=== PATIENT | female | born 1995 | race Two or more races ===

== ENCOUNTER 2016-05-06 18:24 | Emergency (ER) | payer MEDICAID ==
[2016-05-06 18:37] VITALS: BP 122/68
--- NOTE | 2016-05-06 20:08 | EDM.PDOC ---
ED HPI Trauma - General Chief Complaint: Lower Extremity Injury/Pain Stated Complaint: RT FOOT Time Seen by Provider: 05/06/16 20:04 Source: Reports: Patient History Limitations: Reports: No limitations - History of Present Illness INITIAL COMMENTS - FREE TEXT/NARRATIVE: bumped right foot onto night stand [employer], c/o swelling and discolouration. Allergies/ADRs: Allergies No Known Allergies Allergy (Verified 05/06/16 18:44) Home Medications: Ambulatory Orders Acetaminophen [Tylenol] 650 mg PO Q6H PRN #0 tablet 03/07/16 [Confirmed 05/06/16 ] Docusate Sodium [Colace] 100 mg PO Q12H PRN #0 cap 03/07/16 [Confirmed 05/06/16] Ibuprofen [IJD: Ibuprofen] 800 mg PO Q8H PRN #0 tablet 03/07/16 [Confirmed 05/06] Past Medical History - Past Health History Medical/Surgical History: Denies Medical/Surgical History HEENT History: Reports: None Cardiovascular History: Reports: None Respiratory History: Reports: None Gastrointestinal History: Reports: None Genitourinary History: Reports: UTI, recurrent 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: Neurological History: Reports: Migraines Psychiatric History: Reports: Anxiety, Depression Hematologic History: Reports: Anemia, Iron deficiency - Infectious Disease History Infectious Disease History: Reports: Chicken pox Social & Family History - Family History Family Medical History: Noncontributory - Tobacco Use Smoking Status *Q: Former Smoker Years of Tobacco use: 5 Packs/Tins Daily: 0.5 Used Tobacco, but Quit: Yes Month Tobacco Last Used: 08/2015 Second Hand Smoke Exposure: No - Caffeine Use Caffeine Use: Reports: Soda - Alcohol Use Days Per Week of Alcohol Use: 0 - Recreational Drug Use Recreational Drug Use: No Drug Use in Last 12 Months: Yes Recreational Drug Type: Reports: Marijuana/Hashish Recreational Drug Use Frequency: Daily Recreational Drug Last Use: 02/2016 - Living Situation & Occupation Living situation: Reports: single, with significant other Occupation: unemployed Review of Systems - Review of Systems Review Of Systems: ROS reveals no pertinent complaints other than HPI. Trauma Exam - Physical Exam Exam: See Below Exam Limited By: No limitations General Appearance: Reports: alert, WD/WN, no apparent distress Head: Reports: atraumatic Ears: Reports: hearing grossly normal Throat/Mouth: Reports: Normal voice, No airway compromise Neck: Reports: non-tender, full range of motion Respiratory Exam: Reports: no respiratory distress Cardiovascular: Reports: regular rate, rhythm GI/Abdominal: Reports: soft, non tender Extremities: Reports: tenderness, other (mild discolouration right ankle, NV wnl , gait limited to pain) Neurologic: Reports: no motor/sensory deficits, alert, oriented x 3 Skin: Reports: Normal color, Warm/dry Course - Vital Signs Last Recorded V/S: Last Vital Signs Temp 36.6 C 05/06/16 18:36 Pulse 70 05/06/16 18:36 Resp 18 05/06/16 18:36 BP 122/68 05/06/16 18:36 Pulse Ox 98 05/06/16 18:36 - Re-Assessments/Exams Free Text/Narrative Re-Assessment/Exam: 05/06/16 20:06 results discussed with Pt. Departure - Departure Time of Disposition: 20:06 Disposition: Home, Self-Care 01 Condition: good Clinical Impression: Contusion of ankle, right Qualifiers: Encounter type: initial encounter Qualified Code(s): S90.01XA - Contusion of right ankle, initial encounter Instructions: Foot Contusion, [id number] Forms: ED Department Discharge Additional Instructions: 1) elevate foot as much as possible next 48 hours 2) ice intermittently for swelling 3) try tylenol for pain 4) follow up at clinic or recheck as needed
== END 2016-05-06 20:14 | disposition home or self-care (01) ==
LOC: DL.ED 18:24
DX: S90.01XA Contusion of right ankle, initial encounter (principal); F41.9 Anxiety disorder, unspecified; F32.9 Major depressive disorder, single episode, unspecified; D50.9 Iron deficiency anemia, unspecified; Z87.891 Personal history of nicotine dependence; Y04.8XXA Assault by other bodily force, initial encounter
CPT/HCPCS: 73610-RT; 73630-RT; 99283

== ENCOUNTER 2016-05-18 13:08 | Emergency (ER) | payer MEDICAID ==
[2016-05-18 13:44] VITALS: BP 153/106
[2016-05-18] MEDS ORDERED: Sodium Chloride 0.9% 10 ML Syringe FLUSH PRN (13:46)
[2016-05-18] MEDS ORDERED: Sodium Chloride 0.9% 1,000 ML IV ONE (13:59)
[2016-05-18] MEDS ORDERED: Ondansetron 4 MG/2 ML SDV IV ONE (13:59)
[2016-05-18] MEDS ORDERED: Ketorolac 30 MG/ML SDV IVPUSH ONE (13:59)
--- NOTE | 2016-05-18 14:21 | EDM.PDOC ---
ED HISTORY OF PRESENT ILLNESS - General Chief Complaint: Respiratory Problem Stated Complaint: CHEST PAIN TO BACK, SICK Time Seen by Provider: 05/18/16 13:30 Source of Information: Reports: Patient, Old records, RN, RN notes reviewed History Limitations: Reports: No limitations - History of Present Illness INITIAL COMMENTS - FREE TEXT/NARRATIVE: Complaining of cough x1 month with 4-5 days of increasing SOB and wheezing. Denies fevers or chills. Admits to upper abdominal pain, but thinks it may be due to coughing. Severity: moderate Location, General: Reports: chest, abdomen Quality: Reports: Ache Improves with: Reports: None Worsens with: Reports: None Associated Symptoms (General): Reports: no other symptoms - Related Data Allergies/ADRs: Allergies Allergy/AdvReac Type Severity Reaction Status Date / Time No Known Allergies Allergy Verified 05/06/16 18:44 Home Meds: Home Meds Acetaminophen [Tylenol] 650 mg PO Q6H PRN #0 tablet 03/07/16 [Rx] Past Medical History - Past Health History Medical/Surgical History: Denies Medical/Surgical History HEENT History: Reports: None Cardiovascular History: Reports: None Respiratory History: Reports: None Gastrointestinal History: Reports: None Genitourinary History: Reports: UTI, recurrent 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: , Other (see below) Other OB/BYN History: Musculoskeletal History: Reports: None Neurological History: Reports: Migraines Psychiatric History: Reports: Anxiety, Depression Endocrine/Metabolic History: Reports: None Hematologic History: Reports: Anemia, Iron deficiency Dermatologic History: Reports: None - Infectious Disease History Infectious Disease History: Reports: Chicken pox - Past Surgical History GI Surgical History: Reports: None Social & Family History - Family History Family Medical History: Noncontributory - Tobacco Use Smoking Status *Q: Former Smoker Years of Tobacco use: 5 Packs/Tins Daily: 0.5 Used Tobacco, but Quit: Yes Month Tobacco Last Used: 08/2015 Second Hand Smoke Exposure: No - Caffeine Use Caffeine Use: Reports: Soda - Alcohol Use Days Per Week of Alcohol Use: 0 - Recreational Drug Use Recreational Drug Use: No Drug Use in Last 12 Months: Yes Recreational Drug Type: Reports: Marijuana/Hashish Recreational Drug Use Frequency: Daily Recreational Drug Last Use: 02/2016 - Living Situation & Occupation Living situation: Reports: single, with significant other Occupation: unemployed ED ROS GENERAL - Review of Systems Review Of Systems: ROS reveals no pertinent complaints other than HPI. ED EXAM, GENERAL - Physical Exam Exam: See Below Exam Limited By: No limitations General Appearance: alert, WD/WN, no apparent distress Eye Exam: bilateral eye: normal inspection Ears: normal external exam, normal canal, hearing grossly normal, normal TMs Nose: other (normal except for mild nasal congestion with clear mucus. ) Head: atraumatic, normocephalic Neck: normal inspection, supple, non-tender, full range of motion Respiratory/Chest: decreased breath sounds (in bilateral bases. ), wheezing ( mild scattered, otherwise normal.) Cardiovascular: normal peripheral pulses, regular rate, rhythm, no edema, no gallop, no JVD, no murmur, no rub GI/Abdominal: normal bowel sounds, soft, non tender, no organomegaly, no distention, no abnormal bruit, no mass Back Exam: normal inspection, full range of motion, NT Extremities: normal inspection, normal range of motion, non-tender, normal capillary refill, no pedal edema Neurological: alert, oriented, CN II-XII intact, normal cognition, normal gait, normal reflexes, no motor/sensory deficits Psychiatric: normal affect, normal mood Skin Exam: Warm, Dry, Intact, Normal color, No rash EKG INTERPRETATION EKG Date: 05/18/16 Time: 14:01 Rhythm: other (sinus bradycardia) Rate (beats/min): 54 [place]: normal P-wave: present QRS: normal ST-T: normal QT: normal Course - Vital Signs Last Recorded V/S: Last Vital Signs Temp 36.6 C 05/18/16 13:15 Pulse 61 05/18/16 15:02 Resp 18 05/18/16 13:15 BP 153/106 H 05/18/16 13:15 Pulse Ox 98 05/18/16 13:15 - Orders/Labs/Meds Orders: Active Orders 24 hr Category Date Time Status EKG 12 Lead [EKG Documentation Completion] [RC] STAT Care 05/18/16 13:46 Active Peripheral IV Care [RC] . DIRECTED Care 05/18/16 13:46 Active RT Aerosol Therapy [RC] ASDIRECTED Care 05/18/16 14:53 Active CULTURE STREP A CONFIRMATION [] Stat Lab 05/18/16 14:28 Results STREP SCRN A RAPID W CULT CONF [RM] Stat Lab 05/18/16 14:28 Results Sodium Chloride 0.9% [Saline Flush] Med 05/18/16 13:46 Active 10 ml FLUSH ASDIRECTED PRN Peripheral IV Insertion Adult [OM.PC] Stat Oth 05/18/16 13:46 Ordered Medication Orders Sodium Chloride (Saline Flush) 10 ml FLUSH ASDIRECTED PRN PRN Reason: Keep Vein Open Last Admin: 05/18/16 14:18 Dose: 10 ml Labs: Laboratory Tests 05/18/16 05/18/16 05/18/16 Range/Units 13:20 13:20 13:20 WBC (5.0-10.0) 10^3/uL RBC (4.2-5.4) 10^6/uL Hgb (12.0-16.0) g/dL Hct (37.0-47.0) % MCV (80-100) fL MCH (27.0-34.0) pg MCHC (33.0-35.0) g/dL Plt Count (150-450) 10^3/uL Neut % (Auto) (42.2-75.2) % Lymph % (Auto) (20.5-50.1) % [place] % (Auto) (2-8) % Eos % (Auto) (1.0-3.0) % Baso % (Auto) (0.0-1.0) % D-Dimer, Quantitative (0-400) ng/mL Sodium (135-145) mmol/L Potassium (3.6-5.0) mmol/L Chloride (101-111) mmol/L Carbon Dioxide (21.0-31.0) mmol/L Anion Gap BUN (7-18) mg/dL Creatinine (0.6-1.3) mg/dL Est Cr Clr Drug Dosing mL/min Estimated GFR (MDRD) BUN/Creatinine Ratio Glucose (74-105) mg/dL Calcium (8.4-10.2) mg/dl Total Bilirubin (0.2-1.0) mg/dL AST (10-42) IU/L ALT (10-60) IU/L Alkaline Phosphatase (42-121) IU/L Total Protein (6.7-8.2) g/dl Albumin (3.2-5.5) g/dl Globulin Albumin/Globulin Ratio Amylase (28-100) U/L Lipase (22-51) U/L Urine Color Light yellow (YELLOW) Urine Appearance Clear (CLEAR) Urine pH 7.0 (5.0-9.0) Ur Specific [place] 1.020 (1.005-1.030) Urine Protein Negative (NEGATIVE) Urine Glucose (UA) Negative (NEGATIVE) Urine Ketones Negative (NEGATIVE) Urine Occult Blood Negative (NEGATIVE) Urine Nitrite Negative (NEGATIVE) Urine Bilirubin Negative (NEGATIVE) Urine Urobilinogen 0.2 (0.2-1.0) mg/dL Ur Leukocyte Esterase Negative (NEGATIVE) Urine RBC Not seen /HPF Urine WBC 0-5 (0-5/HPF) /HPF Ur Epithelial Cells Few /HPF Urine Bacteria Rare (0-FEW/HPF) /HPF Urine HCG, Qual Negative Urine Opiates Screen Negative (NEGATIVE) Ur Oxycodone Screen Negative (NEGATIVE) Urine Methadone Screen Negative (NEGATIVE) Ur Barbiturates Screen Negative (NEGATIVE) U Tricyclic Antidepress Negative (NEGATIVE) Ur Phencyclidine Scrn Negative (NEGATIVE) Ur Amphetamine Screen Negative (NEGATIVE) U Methamphetamines Scrn Negative (NEGATIVE) Urine MDMA Screen Negative (NEGATIVE) U Benzodiazepines Scrn Negative (NEGATIVE) Urine Cocaine Screen Negative (NEGATIVE) U Marijuana (THC) Screen Positive H (NEGATIVE) 05/18/16 05/18/16 05/18/16 Range/Units 13:53 13:53 13:53 WBC 6.0 (5.0-10.0) 10^3/uL RBC 4.52 (4.2-5.4) 10^6/uL Hgb 11.3 L (12.0-16.0) g/dL Hct 35.9 L (37.0-47.0) % MCV 79.4 L (80-100) fL MCH 25.0 L (27.0-34.0) pg MCHC 31.5 L (33.0-35.0) g/dL Plt Count 160 (150-450) 10^3/uL Neut % (Auto) 65.0 (42.2-75.2) % Lymph % (Auto) 25.8 (20.5-50.1) % [place] % (Auto) 5.9 (2-8) % Eos % (Auto) 2.8 (1.0-3.0) % Baso % (Auto) 0.5 (0.0-1.0) % D-Dimer, Quantitative 328 (0-400) ng/mL Sodium 139 (135-145) mmol/L Potassium 3.5 L (3.6-5.0) mmol/L Chloride 107 (101-111) mmol/L Carbon Dioxide 27.0 (21.0-31.0) mmol/L Anion Gap 8.5 BUN 4 L (7-18) mg/dL Creatinine 0.6 (0.6-1.3) mg/dL Est Cr Clr Drug Dosing 107.43 mL/min Estimated GFR (MDRD) > 60 BUN/Creatinine Ratio 6.66 Glucose 90 (74-105) mg/dL Calcium 9.0 (8.4-10.2) mg/dl Total Bilirubin 0.4 (0.2-1.0) mg/dL AST 21 (10-42) IU/L ALT 27 (10-60) IU/L Alkaline Phosphatase 106 (42-121) IU/L Total Protein 7.5 (6.7-8.2) g/dl Albumin 4.5 (3.2-5.5) g/dl Globulin 3.0 Albumin/Globulin Ratio 1.50 Amylase 36 (28-100) U/L Lipase 27 (22-51) U/L Urine Color (YELLOW) Urine Appearance (CLEAR) Urine pH (5.0-9.0) Ur Specific [place] (1.005-1.030) Urine Protein (NEGATIVE) Urine Glucose (UA) (NEGATIVE) Urine Ketones (NEGATIVE) Urine Occult Blood (NEGATIVE) Urine Nitrite (NEGATIVE) Urine Bilirubin (NEGATIVE) Urine Urobilinogen (0.2-1.0) mg/dL Ur Leukocyte Esterase (NEGATIVE) Urine RBC /HPF Urine WBC (0-5/HPF) /HPF Ur Epithelial Cells /HPF Urine Bacteria (0-FEW/HPF) /HPF Urine HCG, Qual Urine Opiates Screen (NEGATIVE) Ur Oxycodone Screen (NEGATIVE) Urine Methadone Screen (NEGATIVE) Ur Barbiturates Screen (NEGATIVE) U Tricyclic Antidepress (NEGATIVE) Ur Phencyclidine Scrn (NEGATIVE) Ur Amphetamine Screen (NEGATIVE) U Methamphetamines Scrn (NEGATIVE) Urine MDMA Screen (NEGATIVE) U Benzodiazepines Scrn (NEGATIVE) Urine Cocaine Screen (NEGATIVE) U Marijuana (THC) Screen (NEGATIVE) Meds: Medications Generic Name Dose Route Start Last Admin Trade Name Luis PRN Reason Stop Dose Admin Sodium Chloride 10 ml 05/18/16 13:46 05/18/16 14:18 Saline Flush FLUSH 10 ml ASDIRECTED PRN Administration Keep Vein Open Discontinued Medications Generic Name Dose Route Start Last Admin Trade Name Luis PRN Reason Stop Dose Admin Albuterol/Ipratropium 3 ml 05/18/16 14:53 05/18/16 15:02 Duoneb 3.0-0.5 Mg/3 Ml NEB 05/18/16 14:54 3 ml ONETIME ONE Administration Sodium Chloride 1,000 mls @ 999 mls/hr 05/18/16 13:59 05/18/16 14:17 Normal Saline IV 05/18/16 14:59 999 mls/hr .BOLUS ONE Administration Ketorolac Tromethamine 30 mg 05/18/16 13:59 05/18/16 14:22 Toradol IVPUSH 05/18/16 14:00 30 mg ONETIME ONE Administration Ondansetron HCl 4 mg 05/18/16 13:59 05/18/16 14:17 Zofran IV 05/18/16 14:00 4 mg ONETIME ONE Administration - Radiology Interpretation Free Text/Narrative:: Chest x-ray: No acute process per rad report. Departure - Departure Time of Disposition: 15:24 Disposition: Home, Self-Care 01 Condition: good Clinical Impression: RAD (reactive airway disease) Qualifiers: Asthma severity: unspecified severity Asthma complication type: uncomplicated Qualified Code(s): J45.909 - Unspecified asthma, uncomplicated Instructions: Bronchospasm, Adult, [id number] Forms: ED Department Discharge Additional Instructions: Rx: Loratadine 10mg Rx: Albuterol Inhaler Follow up in clinic in 5 to 7 days for recheck. - My Orders Last 24 Hours: My Active Orders 05/18/16 13:46 EKG 12 Lead [EKG Documentation Completion] [RC] STAT Peripheral IV Care [RC] . DIRECTED Sodium Chloride 0.9% [Saline Flush] 10 ml FLUSH ASDIRECTED PRN Peripheral IV Insertion Adult [OM.PC] Stat 05/18/16 14:28 CULTURE STREP A CONFIRMATION [RM] Stat STREP SCRN A RAPID W CULT CONF [RM] Stat 05/18/16 14:53 RT Aerosol Therapy [RC] ASDIRECTED - Assessment/Plan Last 24 Hours: My Active Orders 05/18/16 13:46 EKG 12 Lead [EKG Documentation Completion] [RC] STAT Peripheral IV Care [RC] . DIRECTED Sodium Chloride 0.9% [Saline Flush] 10 ml FLUSH ASDIRECTED PRN Peripheral IV Insertion Adult [OM.PC] Stat 05/18/16 14:28 CULTURE STREP A CONFIRMATION [] Stat STREP SCRN A RAPID W CULT CONF [] Stat 05/18/16 14:53 RT Aerosol Therapy [RC] ASDIRECTED
[2016-05-18 14:22] LABS: CHLORIDE,CL 107 mmol/L (101-111); SODIUM,NA 139 mmol/L (135-145)
[2016-05-18] MEDS ORDERED: Albuterol/Ipratropium 3.0-0.5 MG/3 ML Neb Soln NEB ONE (14:53)
--- NOTE | 2016-05-18 14:55 | CR ---
Clinical history: 20-year-old female chest pain and dyspnea. Interpretation: Normal cardiac silhouette. Good inspiratory effort (large patient post ( without sign of heart failure, lung mass, hilar lympha denopathy or focal lobar pneumonia. No pneumothorax. Antonio thorax unremarkable. CONCLUSION: No acute cardiopulmonary abnormality.
--- NOTE | 2016-05-19 13:26 | EKG ---
05/18/2016- BEATRIZ CONNOLLY - EKG done on a 20-year-old female showing sinus rhythm with a heart rate of 54 beats per minute, normal axis, normal intervals, no acute ST wave changes. [facility] /[id number]
== END 2016-05-18 15:46 | disposition home or self-care (01) ==
LOC: DL.ED 13:08
DX: J45.909 Unspecified asthma, uncomplicated (principal); F41.9 Anxiety disorder, unspecified; F32.9 Major depressive disorder, single episode, unspecified; Z87.440 Personal history of urinary (tract) infections; Z86.2 Personal history of diseases of the blood and blood-forming organs and certain disorders involving the immune mechanism; Z87.891 Personal history of nicotine dependence
CPT/HCPCS: 36415; 71020; 80053; 80305; 81001; 81025; 82150; 83690; 85025; 85379; 87081; 87430; 93005; 94640; 96361; 96374; 96375; 99285; J1885; J2405; J7030; J7050